=== PATIENT | male | born 1970 | race Caucasian/White ===

== ENCOUNTER 2021-12-19 11:25 | Emergency (ER) | payer SELFPAY ==
[2021-12-19 12:21] LABS: HEMOGLOBIN 16.4 gm/dl (14.0-17.5); RED BLOOD COUNT 5.18 M/UL (4.20-5.50); WHITE BLOOD COUNT 3.7 K/UL (4.5-11.0)
[2021-12-19 12:46] LABS: BUN/CREATININE RATIO 12 (0-10)
== END 2021-12-19 13:38 | disposition home or self-care (01) ==
LOC: ER1 11:25
PROVIDERS: Nurse Practitioner
DX: U07.1 COVID-19 (principal); F17.290 Nicotine dependence, other tobacco product, uncomplicated; E66.9 Obesity, unspecified; Z90.89 Acquired absence of other organs; Z90.49 Acquired absence of other specified parts of digestive tract
CPT/HCPCS: 0240U; 36600; 71045; 80053; 82550; 82553; 82803; 84484; 85025; 85379; 85652; 86140; 93005; 99285